=== PATIENT | male | born 1985 | race Caucasian/White ===

== ENCOUNTER 2017-10-14 13:23 | Emergency (ER) | payer OTHER | END 2017-10-14 14:45 | disposition left against medical advice (07) | LOC: D.ER 13:23 | DX: K62.5 Hemorrhage of anus and rectum (principal) ==

== ENCOUNTER 2017-10-15 00:14 | Emergency (ER) | payer OTHER | END 2017-10-15 02:45 | disposition home or self-care (01) | LOC: D.ER 00:14 | DX: K64.9 Unspecified hemorrhoids (principal); F17.200 Nicotine dependence, unspecified, uncomplicated ==

== ENCOUNTER 2018-07-30 19:40 | Emergency (ER) | payer SELFPAY ==
[~2018-07-30] VITALS: Ht 185.4 cm; Wt 77.3 kg
[2018-07-30 19:46] VITALS: Ht 185.4 cm; Wt 77.3 kg
[2018-07-30] MEDS ORDERED: TORADOL10 MG PO (20:36)
[2018-07-30 21:08] VITALS: BP 128/92
== END 2018-07-30 21:09 | disposition home or self-care (01) ==
LOC: D.ER 19:40
DX: S63.501A Unspecified sprain of right wrist, initial encounter (principal); V43.52XA Car driver injured in collision with other type car in traffic accident, initial encounter; Y93.89 Activity, other specified; Y92.410 Unspecified street and highway as the place of occurrence of the external cause; S80.812A Abrasion, left lower leg, initial encounter; S80.12XA Contusion of left lower leg, initial encounter; F17.200 Nicotine dependence, unspecified, uncomplicated

== ENCOUNTER 2019-12-28 18:07 | Emergency (ER) | payer MEDICAID ==
[~2019-12-28] VITALS: Ht 185.4 cm; Wt 96.4 kg
[~2019-12-28 18:07] MED LIST: TORADOL10 MG PO
[2019-12-28 18:32] VITALS: Ht 185.4 cm; Wt 96.4 kg
[2019-12-28] MEDS ORDERED: STERAPRED 5MG 65 M1 PO (20:53)
[2019-12-28] MEDS ORDERED: PEPCID40 MG PO (20:53)
[2019-12-28] MEDS ORDERED: KEFLEX500 MG PO (20:57)
[2019-12-28 21:15] VITALS: BP 138/72
== END 2019-12-28 21:15 | disposition home or self-care (01) ==
LOC: D.ER 18:07
DX: T78.40XA Allergy, unspecified, initial encounter (principal); L03.211 Cellulitis of face

== ENCOUNTER 2020-01-07 13:20 | Emergency (ER) | payer MEDICAID ==
[~2020-01-07] VITALS: Ht 185.4 cm; Wt 99.8 kg
[~2020-01-07 13:20] MED LIST changes: +KEFLEX500 MG PO; +PEPCID40 MG PO; +STERAPRED 5MG 65 M1 PO
[2020-01-07 13:35] VITALS: Ht 185.4 cm; Wt 99.8 kg
[2020-01-07] MEDS ORDERED: ATARAX 25 MG TA25 MG PO (14:02)
[2020-01-07 14:13] VITALS: BP 139/90
== END 2020-01-07 14:13 | disposition home or self-care (01) ==
LOC: D.ER 13:20
DX: L50.9 Urticaria, unspecified (principal)

== ENCOUNTER 2020-01-09 21:42 | Emergency (ER) | payer MEDICAID ==
[~2020-01-09] VITALS: Ht 185.4 cm; Wt 102.3 kg
[~2020-01-09 21:42] MED LIST changes: +ATARAX 25 MG TA25 MG PO
[2020-01-09 22:13] VITALS: BP 121/81; Ht 185.4 cm; Wt 102.3 kg
[2020-01-09] MEDS ORDERED: CARAFATE1 G/10 ML PO (23:04)
[2020-01-09] MEDS ORDERED: OMNICEF300 MG PO (23:04)
== END 2020-01-09 23:30 | disposition home or self-care (01) ==
LOC: D.ER 21:42
DX: J02.9 Acute pharyngitis, unspecified (principal); Z72.0 Tobacco use; M79.10 Myalgia, unspecified site; R68.83 Chills (without fever)